=== PATIENT | female | born 1970 | race Caucasian/White ===

== ENCOUNTER 2017-10-29 09:50 | Emergency (ER) | payer OTHER ==
[2017-10-29 10:29] VITALS: BP 130/85; PULSE 107; RESP 18; TEMP 102.7; O2SAT 99
--- NOTE | 2017-10-29 11:02 | C.PDOC ---
History Of Present Illness 46 year old female presents to the ER with a complaint of fever, myalgias, and dry cough for the past 3 days. Denies any other associated symptoms. FEVER, MYALGIA, DRY COUGH X 3 DAYS. NO OTHER ASSOC SX EXAM MILD DIST NONTOXIC HEENT THROAT CLEAR; NOSE CLEAR LUNGS CTA B/L NO W/R/R REMAINDER NEG Time Seen by Provider: 10/29/17 10:38 Chief Complaint (Nursing): Flu-like Symptoms History Per: Patient History/Exam Limitations: no limitations Onset/Duration Of Symptoms: Days Current Symptoms Are (Timing): Still Present Location Of Pain: Diffuse Myalgias Sick Contacts (Context): None Associated Symptoms: Fever, Cough, Myalgias. denies: Sore Throat, Sputum, Sinus Drainage, Nasal Congestion Ear Symptoms: Bilateral: None Recent travel outside of the [place]: No Past Medical History Reviewed: Historical Data, Nursing Documentation, Vital Signs Vital Signs: Last Vital Signs Temp 102.7 F H 10/29/17 10:25 Pulse 107 H 10/29/17 10:25 Resp 18 10/29/17 11:15 BP 130/85 10/29/17 10:25 Pulse Ox 99 10/29/17 11:03 - Medical History PMH: Gastritis Family History: States: Unknown Family Hx - Social History Hx Tobacco Use: No Hx Alcohol Use: No Hx Substance Use: No - Immunization History Hx Tetanus Toxoid Vaccination: No Hx Influenza Vaccination: No Hx Pneumococcal Vaccination: No Review Of Systems Except As Marked, All Systems Reviewed And Found Negative. Constitutional: Positive for: Fever ENT: Negative for: Ear Pain, Ear Discharge, Nose Discharge, Nose Congestion, Throat Pain Respiratory: Positive for: Cough. Negative for: Sputum Musculoskeletal: Positive for: Other (Myalgias) Physical Exam - Physical Exam Appears: Non-toxic, Other (Mild distress) Skin: Normal Color, Warm, Dry Head: Atraumatic, Normacephalic Eye(s): bilateral: Normal Inspection Ear(s): Bilateral: Normal Nose: Normal Oral Mucosa: Moist Throat: Normal, No Erythema, No Exudate Neck: Normal, Supple Chest: Symmetrical, No Tenderness Cardiovascular: Rhythm Regular Respiratory: Normal Breath Sounds, No Rales, No Rhonchi, No Wheezing Gastrointestinal/Abdominal: Soft, No Tenderness Neurological/Psych: Oriented x3, Normal Speech ED Course And Treatment O2 Sat by Pulse Oximetry: 99 (Room air) Pulse Ox Interpretation: Normal Medical Decision Making Medical Decision Making: Plan: * Tylenol * Motrin Disposition Counseled Patient/Family Regarding: Diagnosis, Need For Followup, Rx Given - Disposition [facility]errals: [facility] [Outside] [facility] [Outside] Disposition: HOME/ ROUTINE Disposition Time: 11:01 Condition: GOOD Prescriptions: Acetaminophen [Tylenol 325mg tab] 650 mg PO Q6 #30 tab Ibuprofen [Motrin] 600 mg PO Q6 #30 tab Oseltamivir [Tamiflu] 75 mg PO BID #10 cap Instructions: Influenza (ED) Forms: [employer] (Greek), Work Excuse Print Language: LAO - Clinical Impression Clinical Impression: Influenza-like illness - Scribe Statement The provider has reviewed the documentation as recorded by the Scribkemar Morel All medical record entries made by the Scribe were at my direction and personally dictated by me. I have reviewed the chart and agree that the record accurately reflects my personal performance of the history, physical exam, medical decision making, and the department course for this patient. I have also personally directed, reviewed, and agree with the discharge instructions and disposition.
== END 2017-10-29 11:16 | disposition home or self-care (01) ==
LOC: C.ER 09:50
DX: J11.1 Influenza due to unidentified influenza virus with other respiratory manifestations (principal)

== ENCOUNTER 2018-11-18 11:12 | Emergency (ER) | payer OTHER ==
--- NOTE | 2018-11-18 11:33 | C.PDOC ---
History Of Present Illness 47 y/o female presents to the ER complaining of right forearm injury which occurred while she was at work in the morning today. 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 Patient reports that she has small abrasion and some bruising. She notes that she did not take any medications for the pain. Denies having weakness,numbness, and parasthesias. Of note, patient is unsure about tetanus vaccination status. Time Seen by Provider: 11/18/18 11:25 Chief Complaint (Nursing): Upper Extremity Problem/Injury History Per: Patient History/Exam Limitations: no limitations Onset/Duration Of Symptoms: Days Current Symptoms Are (Timing): Still Present Severity: Moderate Past Medical History Reviewed: Historical Data, Nursing Documentation, Vital Signs Vital Signs: Last Vital Signs Temp 98.7 F 11/18/18 11:22 Pulse 79 11/18/18 11:22 Resp 20 11/18/18 11:22 BP 152/90 H 11/18/18 11:22 Pulse Ox 100 11/18/18 11:22 - Medical History PMH: Gastritis Surgical History: No Surg Hx Family History: States: No Known Family Hx - Social History Hx Tobacco Use: No Hx Alcohol Use: No Hx Substance Use: No - Immunization History Hx Tetanus Toxoid Vaccination: No Hx Influenza Vaccination: No Hx Pneumococcal Vaccination: No Review Of Systems Except As Marked, All Systems Reviewed And Found Negative. Constitutional: Negative for: Fever, Chills ENT: Negative for: Throat Pain Cardiovascular: Negative for: Chest Pain, Palpitations, Light Headedness Respiratory: Negative for: Cough, Shortness of Breath Gastrointestinal: Negative for: Nausea, Vomiting, Abdominal Pain Musculoskeletal: Positive for: Arm Pain (right forearm pain). Negative for: Neck Pain, Back Pain, Hand Pain Skin: Positive for: Bruising. Negative for: Rash Neurological: Negative for: Weakness, Numbness, Headache, Dizziness Physical Exam - Physical Exam Appears: Well, Non-toxic, No Acute Distress Skin: Warm, Dry, Other (mild bruising to right mid volar forearm, 2 aprox 0.25 cm abrasions to the medial volar forearm, no active bleeding ) Head: Atraumatic, Normacephalic Eye(s): bilateral: Normal Inspection, PERRL, EOMI Nose: Normal Oral Mucosa: Moist Neck: Normal ROM, Supple Chest: Symmetrical Cardiovascular: Rhythm Regular Respiratory: Normal Breath Sounds Extremity: Normal ROM, No Tenderness, Capillary Refill (< 2 seconds), No Deformity, Swelling (mild right mid forearm; see skin exam), No Other (no snuffbox tenderness) Pulses: Left Radial: Normal, Right Radial: Normal Neurological/Psych: Oriented x3, Normal Speech, Normal Motor, Normal Sensation Gait: Steady ED Course And Treatment O2 Sat by Pulse Oximetry: 100 (RA) Pulse Ox Interpretation: Normal - Other Rad Right Forearm Xray X-Ray: Viewed By Me, Read By Radiologist Interpretation: FINDINGS: BONES: No fracture or destructive lesion. JOINT SPACES: Unremarkable. OTHER FINDINGS: There is soft tissue subcutaneous reticulated edema at the approximate mid 1/3 segment of the right forearm on series 1, image 1. IMPRESSION: Soft tissue changes without fracture or bony abnormality appreciated. Right Wrist Xray X-Ray: Viewed By Me, Read By Radiologist Interpretation: FINDINGS: BONES: No fracture seen. On the elongated scaphoid bone view-the scapholunate space appears slightly increased-the other views-this is not suggested. Trace trapezium arthropathic changes noted. JOINTS: No dislocation. SOFT TISSUES: Normal. OTHER FINDINGS: None. IMPRESSION: No fracture or dislocation. Scapholunate interval equivocal widening on one view-clinical significance, if any is unknown-clinical correlation with any focal pain here. If clinically indicated, consider more sensitive evaluation with MRI. Of the right wrist. Right Elbow Xray X-Ray: Viewed By Me, Read By Radiologist Interpretation: FINDINGS: BONES: Normal. No fracture. JOINTS: Normal. No osteoarthritis. SOFT TISSUES: Normal. JOINT EFFUSION: None. OTHER FINDINGS: None. IMPRESSION: Unremarkable radiographs of the right elbow. Medical Decision Making Medical Decision Making: Plan: --Tylenol PO --Tetanus Vaccination --X-Ray-Right Elbow --X-Ray-Right Wrist --X-Ray-Right Forearm Xrays negative for fracture or dislocation. Pt updated with results and given RICE instructions and advised PMD followup within 2 days. Tetanus updated. Wound dressed by nursing staff. No indication for suture repair secondary to superficial nature and small size of injury. No active bleeding. Diagnostic testing results and plan of care discussed with patient. Strict instructions given regarding prescription use, importance of followup, and signs/symptoms to return to ER including worsening pain, numbness, paresthesias, or any other new/worsening symptoms. Pt verbalized understanding of discussion. Patient is A&Ox3, ambulating with steady gait, with vital signs stable for discharge. 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 [place], no actividad vigorosa. Seguimiento con mdico primario en 2 villegas. Regrese a la ben de emergencias con cualquier sntoma nuevo o que empeore Prescriptions: Bacitracin Ointment [Bacitracin] 1 applic TOP DAILY #1 tube Instructions: Wound Care (DC), Crush Injury (DC) Forms: General Discharge Instructions, [facility] (Icelandic), Work Excuse Print Language: ZAMBIAN - Clinical Impression Clinical Impression: Arm injury, Abrasion forearm - Scribe Statement The provider has reviewed the documentation as recorded by the Scribe Mahogany Maravilla Provider Attestation All medical record entries made by the Scribe were at my direction and personally dictated by me. I have reviewed the chart and agree that the record accurately reflects my personal performance of the history, physical exam, medical decision making, and the department course for this patient. I have also personally directed, reviewed, and agree with the discharge instructions and disposition.
[2018-11-18 11:49] VITALS: BP 152/90; PULSE 79; RESP 20; TEMP 98.7; O2SAT 100; BMI 23.0
[2018-11-18] MEDS ORDERED: Bacitracin 500 Units/gm Oint Foilpak UD TOP ONE (12:57)
[2018-11-18] MEDS ORDERED: Tdap Vaccine 0.5 ml Vial (10-64 yrs) IM ONE ×2 (13:03→13:08)
[2018-11-18] MEDS ORDERED: Bacitracin 500 Units/gm Oint Foilpak UD ONE (13:03)
--- NOTE | 2018-11-18 15:38 | RAD ---
Date of service: 11/18/2018 PROCEDURE: Right Wrist Radiographs. HISTORY: trauma this am, pain medially COMPARISON: None. FINDINGS: BONES: No fracture seen. On the elongated scaphoid bone view-the scapholunate space appears slightly increased-the other views-this is not suggested. Trace trapezium arthropathic changes noted JOINTS: No dislocation. SOFT TISSUES: Normal. OTHER FINDINGS: None. IMPRESSION: No fracture or dislocation. Scapholunate interval equivocal widening on one view-clinical significance, if any is unknown-clinical correlation with any focal pain here. If clinically indicated, consider more sensitive evaluation with MRI Of the right wrist.
--- NOTE | 2018-11-18 15:40 | RAD ---
PROCEDURE: Radiographs of the Right Forearm HISTORY: trauma this am, pain medially COMPARISON: None available. TECHNIQUE: Frontal and lateral views obtained. FINDINGS: BONES: No fracture or destructive lesion. JOINT SPACES: Unremarkable. OTHER FINDINGS: There is soft tissue subcutaneous reticulated edema at the approximate mid 1/3 segment of the right forearm on series 1, image 1. IMPRESSION: Soft tissue changes without fracture or bony abnormality appreciated.
--- NOTE | 2018-11-18 15:41 | RAD ---
Date of service: 11/18/2018 PROCEDURE: Radiographs of the right elbow. HISTORY: trauma this am, pain medially COMPARISON: No prior. FINDINGS: BONES: Normal. No fracture. JOINTS: Normal. No osteoarthritis. SOFT TISSUES: Normal. JOINT EFFUSION: None. OTHER FINDINGS: None. IMPRESSION: Unremarkable radiographs of the right elbow.
== END 2018-11-18 13:14 | disposition home or self-care (01) ==
LOC: C.ER 11:12
DX: S50.811A Abrasion of right forearm, initial encounter (principal); W31.89XA Contact with other specified machinery, initial encounter; Y92.89 Other specified places as the place of occurrence of the external cause; Y99.0 Civilian activity done for income or pay